=== PATIENT | male | born 1990 | race Two or more races ===

== ENCOUNTER 2024-07-31 14:17 | Emergency (ER) | payer OTHER ==
[~2024-07-31] VITALS: Ht 193 cm; Wt 99.8 kg
[2024-07-31 17:48] LABS: BASOPHILS % (AUTO) 0.3 % (0.0-2.0); EOSINOPHILS # (AUTO) 0.1 K/uL (0.0-0.7); EOSINOPHILS % (AUTO) 1.1 % (0.0-6.0); HEMATOCRIT 45 % (39-51); HEMOGLOBIN 15.6 g/dL (13.5-17.5); LYMPHOCYTES # (AUTO) 2.8 K/uL (0.8-4.8); LYMPHOCYTES % (AUTO) 34.5 % (20.0-44.0); MEAN CORPUSCULAR HEMOGLOBIN 30 PG (26.0-33.0); MEAN CORPUSCULAR HGB CONC 35 g/dl (31.0-36.0); MEAN CORPUSCULAR VOLUME 87 fL (80-96); MONOCYTES # (AUTO) 0.4 K/uL (0.1-1.30); MONOCYTES % (AUTO) 5.4 % (2.0-12.0); NEUTROPHILS # (AUTO) 4.8 K/uL (1.8-8.9); NEUTROPHILS % (AUTO) 58.7 % (43.0-81.0); PLATELET COUNT (AUTO) 235 K/uL (150-450); RED BLOOD CELL COUNT(AUTO) 5.22 MIL/uL (4.5-6.0); RED CELL DISTRIBUTION WIDTH 13.6 % (11.5-15.0); WHITE BLOOD COUNT (AUTO) 8.2 K/uL (4.3-11.0)
[2024-07-31 18:07] LABS: BILIRUBIN,DIRECT 0.1 mg/dL (0.0-0.2); BILIRUBIN,TOTAL 1.1 mg/dL (0.2-1.0); CALCIUM, SERUM 9.1 mg/dL (8.5-10.1); CREATININE 0.8 mg/dL (0.6-1.3); POTASSIUM 3.8 mmol/L (3.5-5.1); TOTAL PROTEIN, SERUM 7.6 g/dL (6.4-8.2)
[2024-07-31] MEDS ORDERED: METOCLOPRAMIDE HCL 10 MG/2 ML VIAL ONE (18:14)
[2024-07-31] MEDS ORDERED: CLONIDINE HCL 0.1 MG TABLET ONE (18:14)
[2024-07-31] MEDS ORDERED: LOPERAMIDE HCL (2 MG CAP) 2 MG CAPSULE ONE ×2 (18:15→18:23)
[2024-07-31] MEDS: IV NS 0.9% 1,000 ML BAG IV ONE (18:35)
[2024-07-31] MEDS: METOCLOPRAMIDE HCL 10 MG/2 ML VIAL IV ONE (18:36)
[2024-07-31] MEDS: LOPERAMIDE HCL (2 MG CAP) 2 MG CAPSULE PO ONE (18:37)
[2024-07-31] MEDS: CLONIDINE HCL 0.1 MG TABLET PO ONE (18:51)
[2024-07-31] MEDS ORDERED: LOPE2CAP40 PO (18:57)
[2024-07-31] MEDS ORDERED: CLON-418 PO (18:57)
[2024-07-31] MEDS ORDERED: ONDA4TAB5 PO (18:57)
[2024-07-31 19:30] VITALS: BP 132/80; TEMP 97.9; O2SAT 99
== END 2024-07-31 19:30 | disposition home or self-care (01) ==
LOC: ER 14:17
DX: F11.23 Opioid dependence with withdrawal (principal)
CPT/HCPCS: 99283; 96374; 96361; 85025; 80048; 83690; 80076; 36415; J2765; J7030 ×2